=== PATIENT | male | born 2000 | race Hispanic/Latino ===

== ENCOUNTER 2022-11-25 10:57 | Emergency (ER) | payer SELFPAY ==
[2022-11-25 11:08] VITALS: BP 135/86; PULSE 65; RESP 14; TEMP 36.5; O2SAT 99
--- NOTE | 2022-11-25 11:26 | ED.ASTHMA ---
HPI - Asthma General Chief Complaint: Asthma Stated Complaint: asthma Time Seen by Provider: 11/25/22 11:26 Source: patient Mode of arrival: ambulatory Limitations: no limitations History of Present Illness HPI Narrative: 22 years old male came in with sore throat, cold symptoms, wheezing. History of asthma ran out of inhaler 4 months ago. He denies any fever, chills, nausea, vomiting, or chest pain Related Data Allergies Allergy/AdvReac Type Severity Reaction Status Date / Time No Known Allergies Allergy Verified 11/25/22 10:58 Review of Systems Review of Systems: All systems reviewed & are unremarkable except as noted in HPI and below Exam Narrative: General appearance: Well-developed, well-nourished Skin: Normal color Head: Normocephalic, nontraumatic Eyes: Clear conjunctiva ENT: Oropharynx normal, ears normal, nose normal Neck: Supple, nontender Chest and respiratory: Airway patent, no respiratory distress, no accessory muscle use, scattered wheezing bilaterally Heart: Regular rate/rhythm Abdomen: Soft, nontender, no organomegaly, quiet bowel sounds Vascular: Normal peripheral pulses, normal capillary refill. 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, no gross motor deficit Course Course Emergency Course: Asthma exacerbation secondary to viral infection Vital Signs Vital signs: Vital Signs Temperature 36.5 C 11/25/22 11:08 Pulse Rate 65 11/25/22 11:08 Respiratory Rate 14 11/25/22 11:08 Blood Pressure 135/86 11/25/22 11:08 Pulse Oximetry 99 11/25/22 11:08 Oxygen Delivery Room Air 11/25/22 11:08 Temperature 36.5 C 11/25/22 11:08 Pulse Rate 65 11/25/22 11:08 Respiratory Rate 14 11/25/22 11:08 Blood Pressure 135/86 11/25/22 11:08 Pulse Oximetry 99 11/25/22 11:08 Oxygen Delivery Room Air 11/25/22 11:25 MDM - Asthma Differential Diagnosis Differential diagnosis: Likely Acute exacerbation, Acute asthmatic bronchitis and other (Upper respiratory viral infection) Lab Data Labs: Lab Results 11/25/22 11/25/22 Range/Units 11:28 11:28 Influenza A (RT-PCR) Negative (Negative) Influenza B (RT-PCR) Negative (Negative) SARS-CoV-2 RNA (RT-PCR) Negative Group A Strep (PCR) Not detected (Negative) Critical Care Time Critical Care Time Critical Care Time: No Discharge Plan Discharge Clinical Impression: Asthma with acute exacerbation Patient Disposition: Home, Self-Care Condition: Stable Instructions: Antibiotic Form, Asthma (ED), Upper Respiratory Infection (ED) Prescriptions: New albuterol sulfate [Ventolin HFA] 90 mcg/actuation HFA aerosol inhaler 2 puff inhalation QID PRN (Reason: shortness of breath or wheezing) Qty: 8.5 0RF prednisone 20 mg tablet 40 mg PO DAILY 5 Days Qty: 10 0RF Follow-up/Referrals: PHYSICIAN,RESIDENTIAL MANAGER [Primary Care Provider] -
[2022-11-25 12:00] LABS: Strep Group A RT-PCR NOT DETECTED (Negative)
[2022-11-25 12:11] LABS: Influenza A QL RT-PCR Negative (Negative); Influenza B QL RT-PCR Negative (Negative); SARS-CoV-2 RNA PCR Negative
[2022-11-25 15:30] VITALS: BP 118/74; PULSE 74; RESP 16; TEMP 36.7; O2SAT 99
== END 2022-11-25 15:30 | disposition home or self-care (01) ==
PROVIDERS: Emergency Provider Emergency Medicine
DX: J45.901 Unspecified asthma with (acute) exacerbation (principal); Z20.822 Contact with and (suspected) exposure to COVID-19
CPT/HCPCS: 87636; 87651; 99283

== ENCOUNTER 2024-02-12 15:15 | Emergency (ER) | payer SELFPAY ==
--- NOTE | ~2024-02-12 | XR_ITS ---
EXAMINATION: XR chest 2V DATE: 02/12/2024 17:46 INDICATION: Shortness of breath and wheezing TECHNIQUE: PA and lateral views of the chest are obtained. COMPARISON: None available FINDINGS: The lungs are free of acute opacities. No pleural effusion or pneumothorax. The cardiomedia stinal silhouette is normal. The visualized bones and soft tissues are unremarkable. IMPRESSION: 1. No acute cardiopulmonary abnormality. Reviewed, dictated and finalized at location F.
[2024-02-12 15:18] VITALS: BP 127/84; PULSE 90; RESP 18; TEMP 36.5; O2SAT 95
[2024-02-12 16:03] LABS: Strep Group A RT-PCR NOT DETECTED (Negative)
[2024-02-12 16:13] LABS: Influenza A QL RT-PCR Negative (Negative); Influenza B QL RT-PCR Negative (Negative); RSV RNA, RT-PCR Negative (Negative); SARS-CoV-2 RNA PCR Negative (Negative)
--- NOTE | 2024-02-12 16:20 | ED.URI ---
HPI - URI/Sore Throat General Chief Complaint: Upper Respiratory Infection Stated Complaint: asthma/sore throat/chills Time Seen by Provider: 02/12/24 16:20 Source: patient and official court interpreter Mode of arrival: ambulatory Limitations: language barrier History of Present Illness HPI Narrative: This is a 23-year-old male who presents to the ED with chief complaint of URI symptoms for the past 1-2 weeks. Reports it feels like he is having asthma symptoms. Reports that he has tried inhalers but is unsure of what they were. He states that they did not help at all. He does state that the chest feels tight overall. States that this all started with cough, congestion, chills, runny nose and sore throat about a week ago. Denies chest pain, shortness of breath, abdominal pain, nausea, vomiting, recorded fevers. Related Data Allergies Allergy/AdvReac Type Severity Reaction Status Date / Time No Known Allergies Allergy Verified 11/25/22 10:58 Review of Systems Review of Systems: All systems as dictated in HPI Exam Narrative: GENERAL: Well-appearing, well-nourished, and in no acute distress. HEAD: Normocephalic, atraumatic. EYES: PERRLA and EOMI. ENT: Nares clear, no rhinorrhea or epistaxis. Mucous membranes moist. Oropharynx without tonsillar hypertrophy exudate or other lesions. NECK: Supple. No adenopathy or masses. CHEST: No respiratory distress. 95% room air. Diffuse bilateral inspiratory and expiratory wheezes heard. Able to speak in full sentences HEART: Regular rate and rhythm. No murmur heard. Normal peripheral pulses. ABDOMEN: Soft, nontender, nondistended, normal active bowel sounds. MSK: Normal range of motion. No edema. SKIN: Warm, dry, no rash. NEURO: Alert and oriented x3. No focal deficits. PSYCH: Normal mood and affect. Course Vital Signs Vital signs: Vital Signs Temperature 97.7 F 02/12/24 15:18 Pulse Rate 90 02/12/24 15:18 Respiratory Rate 18 02/12/24 15:18 Blood Pressure 127/84 02/12/24 15:18 Pulse Oximetry 95 02/12/24 15:18 Oxygen Delivery Room Air 02/12/24 15:18 Temperature 97.7 F 02/12/24 15:18 Pulse Rate 74 02/12/24 17:35 Respiratory Rate 20 02/12/24 17:35 Blood Pressure 127/84 02/12/24 15:18 Pulse Oximetry 98 02/12/24 16:33 Oxygen Delivery Room Air 02/12/24 16:33 MDM - URI/Sore Throat MDM Narrative Medical decision making narrative: This is a 23-year-old male who presents to the ED with chief complaint of URI symptoms for the past week along with asthma exacerbation. Vitals are normal. Exam shows diffuse bilateral wheezing but respiratory exam otherwise intact. He is not in respiratory distress. Viral swabs strep swab negative. Chest x-ray normal. Symptoms consistent with asthma exacerbation due to recent viral infection He improved greatly with up titrated breathing treatment here in the ED. prescriptions for albuterol and prednisone were given. Pt will be discharged in stable condition. Return precautions given and supportive measures discussed. Pt is understanding and agreeable with plan for discharge and follow-up with PCP. Lab Data Labs: Lab Results 02/12/24 Range/Units 15:25 Influenza A (RT-PCR) Negative (Negative) Influenza B (RT-PCR) Negative (Negative) RSV (RT-PCR) Negative (Negative) SARS-CoV-2 RNA (RT-PCR) Negative (Negative) Group A Strep (PCR) Not detected (Negative) Discharge Plan Discharge Clinical Impression: Asthma exacerbation Patient Disposition: Home, Self-Care Condition: Stable Instructions: Antibiotic Form Prescriptions: New Proair Digihaler 90 mcg/actuation aero powdr breath act w/sensor 1 inh inhalation Q4-6H PRN (Reason: shortness of breath or wheezing) Qty: 1 0RF prednisone 20 mg tablet 20 mg PO DAILY 5 Days Qty: 5 0RF No Action albuterol sulfate [Ventolin HFA] 90 mcg/actuation HFA aerosol inhaler 2 puff inhalation QID PRN (Reason:
[2024-02-12 16:33] VITALS: O2SAT 98
[2024-02-12] MEDS: IPRATROPIUM BR 0.02% INH SOLN 0.5 MG/2.5 ML VIAL 1.5 MG INHALATION (16:40)
[2024-02-12] MEDS: ALBUTEROL SULFATE NEB 2.5 MG/3 ML INH 10 MG INHALATION (16:40)
[2024-02-12 17:33] VITALS: PULSE 82; RESP 20
[2024-02-12 17:35] VITALS: PULSE 74; RESP 20
== END 2024-02-12 18:44 | disposition home or self-care (01) ==
LOC: ANHED 18:32
PROVIDERS: Emergency Medicine; Emergency Provider Physician Assistant
DX: J45.901 Unspecified asthma with (acute) exacerbation (principal); Z20.822 Contact with and (suspected) exposure to COVID-19
CPT/HCPCS: 71046; 87637; 87651; 94640; 99283